=== PATIENT | male | born 1935 | race Two or more races ===

== ENCOUNTER 2018-12-13 09:42 | Outpatient (CLI) | payer OTHER | END 2018-12-13 09:56 | disposition home or self-care (01) | LOC: RAD 501 09:42 | DX: M54.5 Low back pain (principal) ==

== ENCOUNTER 2018-12-27 11:38 | Outpatient (CLI) | payer OTHER | END 2018-12-27 11:48 | disposition home or self-care (01) | LOC: RAD 501 11:38 | DX: M25.562 Pain in left knee (principal) ==

== ENCOUNTER 2019-01-03 10:15 | Outpatient (CLI) | payer OTHER | END 2019-01-03 10:24 | disposition home or self-care (01) | LOC: RAD 10:15 | DX: M54.5 Low back pain (principal); M25.552 Pain in left hip ==